=== PATIENT | female | born 1985 | race American Indian/Alaskan Native ===

== ENCOUNTER 2019-05-14 08:37 | Outpatient (CLI) | payer MEDICAID ==
[2019-05-14] MEDS ORDERED: LACTATED RINGERS 500 ML IV ONE (09:34)
[2019-05-14 10:43] LABS: Bacteria,Urine 4+ /HPF (Negative); Bilirubin,Urine NEG (Negative); Blood,Urine LG (Negative); Color,Urine Yellow (Yellow); Mucus,Urine FEW /HPF; Urobilinogen,Urine < 2.0 mg/dL (<2.0)
[2019-05-14 10:46] LABS: RBC,Urine > 182.0 /HPF (0.0-6.0); WBC,Urine > 182.0 /HPF (0.0-6.0)
[2019-05-14 11:02] LABS: Basophils % (Auto) 0.4 % (0.0-1.8); Eosinophils # (Auto) 0.2 K/mm3 (0.0-0.4); Eosinophils % (Auto) 2.8 % (0.0-4.3); Hematocrit 35.1 % (30.3-42.9); Hemoglobin 11.9 gm/dl (10.1-14.3); Lymphocytes # (Auto) 1.3 K/mm3 (1.2-5.4); Lymphocytes % (Auto) 22.1 % (13.4-35.0); Mean Corpuscular HGB Conc 34 % (30-34); Mean Corpuscular Volume 96 fl (79-97); Monocytes # (Auto) 0.8 K/mm3 (0.0-0.8); Platelet Count 183 K/mm3 (140-440); Red Blood Count 3.64 M/mm3 (3.65-5.03); Red Cell Distribution Width 14.6 % (13.2-15.2)
[2019-05-14] MEDS ORDERED: LACTATED RINGERS 1,000 ML IV ONE (11:10)
--- NOTE | 2019-05-14 12:28 | Ultrasound Report ---
Limited OB Ultrasound Biophysical profile HISTORY: spotting. TECHNIQUE: Grayscale and color Doppler imaging performed. COMPARISON: None FINDINGS: There is a single viable intrauterine gestation which is cephalic in presentation. TRACI is 7 cm. Placenta is positioned anteriorly. Heart rate is 160 bpm. On biophysical profile, the fetus received a score of 2 out of 2 for breathing movement, movement, po sture/tone, and qualitative TRACI. Total score was 8 out of 8. IMPRESSION: 1. Single viable intrauterine gestation as above. 2. Normal BPP. Signer Name: Bernard Velarde MD Signed: 05/14/2019 12:24 PM Workstation Name: [id number]
[2019-05-14] MEDS ORDERED: cefTRIAXone/NS 1 GM/50 ML 1 GM/50 ML BAG IV ONE (12:30)
[2019-05-14 13:12] VITALS: BP 111/57
== END 2019-05-14 13:40 | disposition home or self-care (01) ==
LOC: TRG 08:37
PROVIDERS: ATTEND Obstetrics & Gynecology
DX: O62.9 Abnormality of forces of labor, unspecified (principal); O26.853 Spotting complicating pregnancy, third trimester; Z3A.34 34 weeks gestation of pregnancy
CPT/HCPCS: 36415; 59025; 76815; 76819; 81001; 85025; 86850; 86900; 86901; 87806; 96361; 96365; J0696; J7120; 96360

== ENCOUNTER 2020-03-24 14:55 | Emergency (ER) | payer MEDICAID | END 2020-03-24 15:11 | disposition left against medical advice (07) | LOC: ED 14:55 | DX: R07.89 Other chest pain (principal); Z53.21 Procedure and treatment not carried out due to patient leaving prior to being seen by health care provider ==